=== PATIENT | male | born 1980 | race Caucasian/White ===

== ENCOUNTER 2017-03-13 16:59 | Emergency (ER) | payer OTHER ==
--- NOTE | ~2017-03-13 | CR21 ---
[facility] A Service of [facility] & [facility] RADIOLOGY TEXT RESULTS PATIENT: KARL MANN LOCATION: SED : 78 UNIT #: [id number] AGE: [address]: Sammie Blum APRN SEX: M ORDER DR: [id number] [address] [address] [id number] E MR#: [id number] Acc #: [id number] NAME: KARL MANN. : 1980 SEX: M STUDY DATE/TIME: 03/13/2017 16:35 UNIT: SED ROOM: STUDY DESCRIPTION: CR Ankle Min 3 Views Rt Attending Physician: Sammie Blum A.P.R.N. Ordering Physician: Sammie Blum A.P.R.N. Primary Care Physician: No Primary Care Physician MEDICAL IMAGING REPORT This report is preliminary unless electronic signature is present. EXAM Right ankle 3 views HISTORY 37-year-old male fell, twisting ankle today. FINDINGS 3 views of the right ankle demonstrate a short spiral fracture or short oblique fracture of the distal fibula just above the ankle mortise. No displacement or angulation. The ankle mortise appears intact. The talus and subtalar joint appears normal. Proximal to the fracture, there is a 2.3 cm sclerotic lesion which appears to be intramedullary or possibly cortical in location. This could represent an old fibrous cortical defect or old bone infarct. Bone island also a consideration. No aggressive features are identified. No significant soft tissue swelling noted. IMPRESSION 1. Short oblique or spiral fracture of the distal fibular shaft without displacement or disruption of the ankle mortise. 2. Distal fibular bone lesion may represent a healed fibrous cortical defect, bone island, or old bone infarct. No aggressive features. Dictated by... Stephanie Pineda M.D. THIS IS AN ELECTRONICALLY VERIFIED REPORT Stephanie Pineda M.D. at 03/14/2017 7:33 AM Nick TD: 03/13/2017 18:38 JOB #: [id number] [facility] A Service of [facility] & [facility] RADIOLOGY TEXT RESULTS PATIENT: KARL MANN LOCATION: [facility] #: [id number] : [birth year] UNIT #: [id number] AGE: [address]: Sammie Blum APRN SEX: M ORDER DR: MEDICAL IMAGING REPORT Page 1 of 1
[~2017-03-13 16:59] MED LIST: IBUPROFEN800 MG PO
== END 2017-03-13 18:05 | disposition home or self-care (01) ==
LOC: SED 16:59
DX: S82.831A Other fracture of upper and lower end of right fibula, initial encounter for closed fracture (principal); F17.200 Nicotine dependence, unspecified, uncomplicated; Z79.899 Other long term (current) drug therapy; X58.XXXA Exposure to other specified factors, initial encounter; Y92.009 Unspecified place in unspecified non-institutional (private) residence as the place of occurrence of the external cause
CPT/HCPCS: 29405; 73610; 99283